=== PATIENT | female | born 1945 | race Caucasian/White ===

== ENCOUNTER 2016-10-21 16:45 | Emergency (ER) | payer OTHER ==
[2016-10-21 17:10] LABS: BASOPHILS 0.6 % (0.0-2.0); EOSINOPHILS 0.3 % (0.0-6.0); HEMATOCRIT 45.2 % (36.0-48.0); HEMOGLOBIN 15.4 g/dL (12.0-16.0); LYMPHOCYTES 40.1 % (20.0-40.0); LYMPHOCYTES# 1.3 X 10^3uL (0.8-3.8); MEAN CELL VOLUME 93.6 fL (80.0-100.0); MEAN CORPUS. HGB CONCENTRATION 34.2 g/dL (32.0-36.0); MONOCYTES 14.1 % (2.0-10.0); MONOCYTES# 0.4 X 10^3uL (0.2-1.0); NEUTROPHILS 44.9 % (54.0-75.0); NEUTROPHILS# 1.4 X 10^3uL (2.6-6.7); RED BLOOD COUNT 4.82 X 10^6uL (4.20-6.10); RED CELL DISTRIBUTION WIDTH 12.1 % (11.5-14.5); WHITE BLOOD COUNT 3.1 X 10^3uL (3.9-10.7)
[2016-10-21 17:20] LABS: POTASSIUM 3.8 mmol/L (3.5-5.1)
--- NOTE | 2016-10-21 18:35 | ER NURSING DOCUMENTATION ---
Nurse's Notes [facility] Name:Sophia Mohamud Age:71 yrs Sex:Female :1945 Arrival Date:10/21/2016 Time:16:45 Bed4 Private MD:Morena Hayes Diagnosis:Dizziness - Vertigo;Dehydration Presentation: 10/21 16:47 Presenting complaint: Patient states: feel like I am "passed out" x 3 occurrences cb today. Transition of care: Home. 16:47 Method Of Arrival: Private Vehicle cb 16:47 Acuity: ETHAN 3 cb Triage Assessment: 16:51 General: Appears in no apparent distress, well groomed, Behavior is cooperative. Pain: cb Denies pain. EENT: Reports Sinus drainage. Neuro: Level of Consciousness is awake, alert, Oriented to person, place, event, patient does not know the day of week or the actual date, . Cardiovascular: Rhythm is regular. Respiratory: Airway is patent Trachea midline Respiratory effort is even, unlabored, Respiratory pattern is regular, symmetrical. GI: Reports tolerance of fluids, tolerance of food. : Denies burning with urination. Derm: Denies any non healing wounds. Musculoskeletal: No deficits noted. Historical: - Allergies: No known drug Allergies; - Home Meds: 1. Mobic oral 2. duloxetine oral 3. Simvastatin Oral - PMHx: RHEUMATOID ARTHRITIS; - PSHx: neck surgery; back surgery ; HIP SURGERY; - Tetanus: < 10 years. - Ebola Screening: : Patient negative for fever greater than or equal to 101.5 degrees Fahrenheit, and additional compatible Ebola Virus Disease symptoms. Patient denies exposure to infectious person. Patient denies travel to an Ebola-affected area in the 21 days before illness onset. No symptoms or risks identified at this time. . - Immunization history: Flu Vaccine < 1 year. - Social history: Smoking status: Patient states was never smoker of tobacco. Screenin:00 Infectious Disease Risk None. Abuse screen: Denies threats or abuse. Denies injuries cb from another. Nutritional screening: No deficits noted. Vital Signs: 16:56 BP 150 / 82; Pulse 61; Resp 20; Temp 98.2(TE); Pulse Ox 99% on R/A; Weight 67.13 kg; cb Height 5 ft. 6 in. (167.64 cm); Pain 0/10; 17:00 BP 138 / 77; Pulse 54; Pulse Ox 98% on R/A; cb 17:30 BP 140 / 81; Pulse 52; Resp 15; Pulse Ox 98% on R/A; cb 18:27 BP 120 / 73; Pulse 58; cb 18:27 BP 120 / 73; Pulse 58; cb 16:56 Body Mass Index 23.89 (67.13 kg, 167.64 cm) cb [place] Coma Score: 17:05 Eye Response: spontaneous(4). Verbal Response: oriented(5). Motor Response: obeys cd commands(6). Total: 15. ED Course: 16:46 Patient arrived in ED. lm3 16:46 Morena Hayes MD is Private Physician. lm3 16:47 Shelly Pryor, JAZMIN is Primary Nurse. cb 16:48 Triage completed. cb 16:58 Inserted peripheral IV: 20 gauge in left antecubital area and blood collected. ma 17:00 Labs drawn. (by ED staff). Sent per order to lab. cb 17:00 Valuables Remains with patient Patient has correct armband on for positive cb identification. Placed in gown. Bed in low position. Call light in reach. Side rails up X2. Adult w/ patient. 17:10 EKG done. (by ED staff). Reviewed by Rigoberto Olivas MD. cb 17:29 Rigoberto Olivas MD is Attending Physician. cd 18:15 Morena Hayes MD is Referral Physician. cd 18:55 EKG attached cb Administered Medications: 17:14 Drug: NS 0.9% 250 ml; Route: IV; Rate: bolus; Site: left antecubital; cb 18:31 Follow up: IV Intake: 250ml cb 17:45 Drug: NS 0.9% 750 ml; Route: IV; Rate: bolus; Site: left antecubital; cb 18:32 Follow up: IV Intake: 150ml cb Point of Care Testing: Blood Glucose: 16:58 Blood Glucose: 92 mg/dL; ma Urine Dip: 17:22 pH: 6.5; ; Specific [place]: 1.020; Ketones: Negative; Glucose: Negative; Protein: cb Negative; Leukocytes: Negative; Nitrite: Negative ; Blood: Negative; Bilirubin: Negative ; Urobilinogen: Normal Ranges: Intake: 18:31 IV: 250ml; Total: 250ml. cb 18:32 IV: 150ml; Total: 400ml. cb Outcome: 18:16 Discharge ordered by . negin 18:30 Discharged to home ambulatory, with family. cb 18:30 Discharged to home ambulatory, with family. cb 18:30 Condition: stable 18:30 Discharge Assessment: Patient awake and alert. obeys commands, Patient verbalized understanding of disposition instructions. 18:30 Discharge instructions given to patient, family, Instructed on discharge instructions, follow up and referral plans. Demonstrated understanding of instructions. 18:34 Patient left the ED. cb 10/22 10:37 Discharge F/U Call: Spoke with: patient. Overall Care on a scale of 1-10 with 10 sj being the best care, you rate our care as: the rating of 10. Other comments: "You guys were great!" What is the one thing you feel we could do to improve? Signatures: Shelly Pryor, RN Evelyn Martinez cb RN Rigoberto Levine ma, MD MD cd Janzen, Sarah sj [place], Lisa [facility]
--- NOTE | 2016-10-21 18:35 | ER PHYSICIAN DOCUMENTATION ---
Physician Documentation [facility] Name:Sophia Mohamud Age:71 yrs Sex:Female :1945 Arrival Date:10/21/2016 Time:16:45 Bed4 Private MD:Morena Hayes ED PhysicianVincentluis miguelRigoberto Disposition: 10/21/16 18:16 Discharged to Home/Self Care. Impression: Dizziness - Vertigo, Dehydration. - Condition is Good. - Discharge Instructions: DEHYDRATION (8y-Adult), DIZZINESS, Unk Cause. - Medical Reconciliation form form. - Follow up: Morena Hayes MD; When: 7 - 10 days; Reason: Recheck today's complaints, Continuance of care. - Problem is new. - Symptoms are resolved. - Notes: Drink 2 - 3 quarts of water or Gatorade every day for 2 - 3 days. Rest.... HPI: 10/21 16:50 This 71 yrs old Female presents to ER via Private Vehicle with complaints of cd Fainting. 16:50 The patient has experienced syncope, became unresponsive. Onset: The symptom(s)/episode cd began/occurred acutely, today, three times. Duration: The patient has had multiple episodes, that last 4 second(s). Context: the episode(s) was witnessed, by family, , occurred at home, Just prior to the episode the patient experienced lightheadedness. Associated injury: The patient did not suffer any apparent associated injury. Associated signs and symptoms: Pertinent negatives: abdominal pain, ataxia, chest pain, confusion, diaphoresis, headache, numbness, palpitations, seizure, shortness of breath, vomiting. Current symptoms: Currently, the patient is not experiencing any symptoms. The patient has not experienced similar symptoms in the past. Historical: - Allergies: No known drug Allergies; - Home Meds: 1. Mobic oral 2. duloxetine oral 3. Simvastatin Oral - PMHx: RHEUMATOID ARTHRITIS; - PSHx: neck surgery; back surgery ; HIP SURGERY; - Tetanus: < 10 years. - Ebola Screening: : Patient negative for fever greater than or equal to 101.5 degrees Fahrenheit, and additional compatible Ebola Virus Disease symptoms. Patient denies exposure to infectious person. Patient denies travel to an Ebola-affected area in the 21 days before illness onset. No symptoms or risks identified at this time. . - Immunization history: Flu Vaccine < 1 year. - Social history: Smoking status: Patient states was never smoker of tobacco. ROS: 17:05 ENT: Negative for injury, pain, epistaxis and discharge. cd Neck: Negative for injury, pain, stiffness and swelling. Abdomen/GI: Negative for abdominal pain, nausea, vomiting, diarrhea, constipation, distension, melena, hematochezia and hematemesis. Back: Negative for injury, pain or muscle spasms. : Negative for injury, bleeding, discharge, dysuria, frequency, urgency and swelling. MS/Extremity: Negative for injury, deformity, edema, calf tenderness, pain or coldness. Skin: Negative for injury, rash, itching and discoloration. 17:05 Neuro: Negative for headache, weakness, numbness, tingling, and seizure. cd 17:05 Constitutional: Positive for poor PO intake, Negative for chills, fever. 17:05 Cardiovascular: Negative for chest pain, edema, orthopnea, palpitations, paroxysmal nocturnal dyspnea. 17:05 Respiratory: Negative for cough, hemoptysis, orthopnea, pleurisy, shortness of breath, sputum production, wheezing. 17:05 All other systems are negative. Exam: 17:05 Abdomen/GI: Inspection: abdomen appears normal, Bowel sounds: normal, active, cd Palpation: abdomen is soft and non-tender. Constitutional: This is a well developed, well nourished patient who is awake, alert, and in no acute distress. Head/Face: Normocephalic, atraumatic. ENT: Nares patent. No nasal discharge, no septal abnormalities noted. Tympanic membranes are normal and external auditory canals are clear. Oropharynx with no redness, swelling, or masses, exudates, or evidence of obstruction, uvula midline. Mucous membranes dry Chest/axilla: Normal chest wall appearance and motion. Nontender with no deformity. No lesions are appreciated. Respiratory: Lungs have equal breath sounds bilaterally, clear to auscultation and percussion. No rales, rhonchi or wheezes noted. No increased work of breathing, no retractions or nasal flaring. Abdomen/GI: Soft, non-tender, with normal bowel sounds. No distension or tympany. No guarding or rebound. No evidence of tenderness throughout. Back: No spinal tenderness. No costovertebral tenderness. Full range of motion. Skin: Warm, dry with normal turgor. Normal color with no rashes, no lesions, and no evidence of cellulitis. MS/ Extremity: Pulses equal, no cyanosis. Neurovascular intact. Full, normal range of motion. 17:05 Neuro: Awake and alert, GCS 15, oriented to person, place, time, and situation. Cranial nerves II-XII grossly intact. Motor strength 5/5 in all extremities. Sensory grossly intact. Cerebellar exam normal. Normal gait. 17:05 Eyes: Pupils: equal, round, and reactive to light and accomodation, Extraocular movements: intact throughout. 17:05 Cardiovascular: Rate: bradycardic, Rhythm: regular, Pulses: no pulse deficits are appreciated, Heart sounds: normal, Edema: is not appreciated. Vital Signs: 16:56 BP 150 / 82; Pulse 61; Resp 20; Temp 98.2(TE); Pulse Ox 99% on R/A; Weight 67.13 kg; cb Height 5 ft. 6 in. (167.64 cm); Pain 0/10; 17:00 BP 138 / 77; Pulse 54; Pulse Ox 98% on R/A; cb 17:30 BP 140 / 81; Pulse 52; Resp 15; Pulse Ox 98% on R/A; cb 18:27 BP 120 / 73; Pulse 58; cb 18:27 BP 120 / 73; Pulse 58; cb 16:56 Body Mass Index 23.89 (67.13 kg, 167.64 cm) cb Paloma Coma Score: 17:05 Eye Response: spontaneous(4). Verbal Response: oriented(5). Motor Response: obeys cd commands(6). Total: 15. MDM: 17:00 Differential Diagnosis: cardiac arrhythmia, cerebrovascular accident, GI bleed, cd idiopathic syncope, sepsis, transient ischemic attack, vasovagal episode, Dehydration. Data interpreted: Pulse oximetry: on room air is 98 %. Interpretation: normal. 17:00 ECG:. cd 17:29 Patient medically screened. cd 18:00 Neurological re-evaluation: normal neurological exam including cranial nerves, cd orientation, mentation, motor and sensory exam, cerebellar testing, GCS normal, and normal gait. 18:05 Data reviewed: vital signs, nurses notes, old medical records, lab test result(s), EKG, cd and as a result, I will discharge patient, administer IV fluids, NS bolus, NS maintenence. Counseling: I had a detailed discussion with the patient and/or guardian regarding: the historical points, exam findings, and any diagnostic results supporting the discharge/admit diagnosis, lab results, the need for outpatient follow up, for a recheck, with the patient's primary care provider, to return to the emergency department if symptoms worsen or persist or if there are any questions or concerns that arise at home. Response to treatment: the patient's symptoms have resolved after treatment, the patient's condition has returned to base line, the patient is now symptom free, patient is well hydrated. and as a result, I will discharge patient. 18:55 EKG attached 10/21 17:18 Order name: CBC AUTO DIF, MDIF/RMOR IF IND; Complete Time: 17:30 EDMS 10/21 Interpretation: Normal Except: WHITE BLOOD COUNT 3.1; LYMPHOCYTES 40.1. 10/21 17:21 Order name: BASIC METABOLIC PANEL; Complete Time: 17:30 EDMS 03 17:29 Interpretation: Normal Except: SODIUM 133; Hyponatremia. cd 10/21 17:05 Order name: 12-lead EKG; Complete Time: 17:14 cb EC:05 Rate is 55 beats/min. Rhythm is regular. QRS [place] is Normal. [place] interval is normal. QRS cd interval is normal. QT interval is normal. No Q waves. T waves are Normal. No ST changes noted. Clinical impression: Normal ECG and No evidence of ischemia. Interpreted by me. Dispensed Medications: 17:14 Drug: NS 0.9% 250 ml; Route: IV; Rate: bolus; Site: left antecubital; cb 18:31 Follow up: IV Intake: 250ml cb 17:45 Drug: NS 0.9% 750 ml; Route: IV; Rate: bolus; Site: left antecubital; cb 18:32 Follow up: IV Intake: 150ml cb Point of Care Testing: Blood Glucose: 16:58 Blood Glucose: 92 mg/dL; ma Urine Dip: 17:22 pH: 6.5; ; Specific [place]: 1.020; Ketones: Negative; Glucose: Negative; Protein: cb Negative; Leukocytes: Negative; Nitrite: Negative ; Blood: Negative; Bilirubin: Negative ; Urobilinogen: Normal Ranges: Critical Glucose Levels:Adult <50 mg/dl or >400 mg/dl <40 mg/dl or >180 mg/dl Signatures: Shelly Pryor, RN Evelyn Martinez cb, RN RN ma Daley, Chris, MD MD cd
== END 2016-10-21 18:35 | disposition home or self-care (01) ==
LOC: ER 16:45
DX: E86.0 Dehydration (principal); R42 Dizziness and giddiness; R00.1 Bradycardia, unspecified; E87.1 Hypo-osmolality and hyponatremia; Z79.899 Other long term (current) drug therapy
CPT/HCPCS: 80048; 85025; 93005; 99284